=== PATIENT | female | born 1965 | race African-American/Black ===

== ENCOUNTER 2018-02-13 10:25 | Inpatient (IN) | payer MEDICAID ==
[~2018-02-13] VITALS: Ht 157.5 cm; Wt 59.0 kg
[~2018-02-13 10:25] MED LIST: ALBU18HF2 IH; BACL20TA PO; CETI10TA6 PO; DIAZ10TA4 PO; FERR-63 PO; FLUT16SP15 BOTHNSTRLS; FOLI-43 PO; GABA-531 PO; LISI-604 PO; MIRT45TA83 PO; ONDA4TAB5 PO; PHEN100C12 MT
[2018-02-13 11:07] LABS: BASOPHILS % 0.9 % (0.0-2.0); EOSINOPHILS % 0.8 % (0.0-5.0); HEMATOCRIT. 42.2 % (36.0-48.0); HEMOGLOBIN. 13.6 g/dL (12.0-16.0); LYMPHOCYTES % 52.5 % (20.0-50.0); MEAN CORPUSCULAR HEMOGLOBIN 29.3 pg (28.0-32.0); MEAN CORPUSCULAR VOLUME 90.6 fL (81.0-99.0); MEAN PLATELET VOLUME 6.9 fl (7.4-10.4); MONOCYTES % 3.1 % (2.0-8.0); NEUTROPHILS % 42.7 % (40.0-76.0); PLATELET 292 x1000/uL (130-400); RED BLOOD CELL COUNT 4.66 mill/uL (4.2-5.4); RED CELL DISTRIBUTION WIDTH 16.5 % (11.6-14.6)
[2018-02-13 11:14] LABS: CHLORIDE 106 mEq/L (98-107)
[2018-02-13] MEDS ORDERED: ONDANSETRON HCL 4MG/2ML INJ IV STA (11:20)
[2018-02-13] MEDS ORDERED: MORPHINE SULFATE 4 MG/ML CPJ (NOT FOR IM USE) IV STA (11:20)
[2018-02-13 11:23] LABS: AMMONIA 24 uMol/L (<32)
[2018-02-13 11:26] LABS: ETHANOL BLOOD 321 mg/dL
[2018-02-13] MEDS ORDERED: SODIUM CHLORIDE 0.9% 1,000 ML IV ONE (11:36)
[2018-02-13 11:55] LABS: BG BASE EXCESS -3.5 mmol/L (-2.0-2.0); BG CARBOXYHEMOGLOBIN 3.2 % (0.5-1.5); BG DEOXYHEMOGLOBIN 4.6 % (0.0-5.0); BG FRACTION INSPIRED OXYGEN 21; BG HCO3 ACT 21.9 mmol/L (22.0-26.0); BG METHEMOGLOBIN 0.4 % (0.0-1.5); BG OXYGEN SATURATION 95.2 % (92.0-98.5); BG OXYHEMOGLOBIN 91.8 % (94.0-97.0); BG PCO2 40.8 mmHg (35.0-45.0); BG PH 7.348 (7.350-7.450); BG PO2 88.8 mmHg (75.0-100.0); BG SAMPLE SITE LEFT RADIAL; BG TOTAL HEMOGLOBIN 13.8 g/dL (12.0-18.0); BG VENT MODE ROOM AIR
[2018-02-13 12:48] LABS: CLARITY URINE CLEAR (CLEAR); COLOR URINE YELLOW (YELLOW); KETONES URINE NEGATIVE (NEGATIVE); LEUKOCYTE ESTERASE URINE NEGATIVE (NEGATIVE); NITRITE URINE NEGATIVE (NEGATIVE); OCCULT BLOOD URINE 1+ (NEGATIVE); PROTEIN URINE NEGATIVE (NEGATIVE); SPECIFIC GRAVITY URINE 1.002 (1.005-1.030); UROBILINOGEN URINE 0.2 E.U./dL (0.2-1.0)
[2018-02-13] MEDS ORDERED: ACETAMINOPHEN 650MG/20.3ML UDC GT PRN (14:00)
[2018-02-13] MEDS ORDERED: ACETAMINOPHEN 650MG SUPP PR PRN (14:00)
[2018-02-13] MEDS ORDERED: ONDANSETRON HCL 4MG/2ML INJ IV PRN (14:00)
[2018-02-13] MEDS ORDERED: HYDROCODONE/ACETAMINOPHEN 10/325MG TABLET PO PRN (14:00)
[2018-02-13] MEDS ORDERED: MAGNESIUM/ALUMINUM HYDROXIDE/SIMETHICONE 30ML UDC PO PRN (14:00)
[2018-02-13] MEDS ORDERED: HYDROCODONE/ACETAMINOPHEN 5/325MG TABLET PO PRN (14:00)
[2018-02-13] MEDS ORDERED: CLONIDINE 0.1MG TABLET PO PRN (14:00)
[2018-02-13] MEDS ORDERED: ACETAMINOPHEN 325MG TABLET PO PRN (14:00)
[2018-02-13 14:04] LABS: *AMPHETAMINES SCREEN URINE NEGATIVE (NEGATIVE); *BARBITURATES SCREEN URINE NEGATIVE (NEGATIVE); *BENZODIAZEPINES SCREEN URINE NEGATIVE (NEGATIVE)
[2018-02-13 14:05] LABS: *COCAINE SCREEN URINE NEGATIVE (NEGATIVE); CANNABINOID URINE SCREEN PRESUMTIVE POSITIVE (NEGATIVE); METHADONE URINE SCREEN NEGATIVE (NEGATIVE); OPIATES URINE SCREEN NEGATIVE (NEGATIVE); PHENCYCLIDINE URINE SCREEN NEGATIVE (NEGATIVE)
[2018-02-13] MEDS ORDERED: LORAZEPAM 2MG/ML CPJ IV PRN (14:15)
[2018-02-13] MEDS ORDERED: ALBUTEROL (0.083%) 2.5MG/3ML NEB HHN PRN (14:15)
[2018-02-13 16:39] LABS: FOLIC ACID (FOLATE) SERUM 6.7 ng/mL (>5.38)
[2018-02-13] MEDS ORDERED: IOHEXOL-300 100 ML BOTTLE ONE (17:03)
[2018-02-13] MEDS: SODIUM CHLORIDE 0.45% 1,000 ML IV SCH ×2 (18:00→23:13)
[2018-02-13 18:41] LABS: T4 FREE 1.18 ng/dL (0.76-1.46)
[2018-02-13 20:11] LABS: AMMONIA 22 uMol/L (<32)
[2018-02-13 20:14] LABS: CREATINE KINASE 63 IU/L (26-192); CREATINE KINASE MB FRACTION < 1.0 ng/mL (0.5-3.6)
[2018-02-13 20:30] VITALS: BP 147/89
[2018-02-13 20:40] VITALS: BP 147/89
[2018-02-13] MEDS ORDERED: LEVETIRACETAM 500MG TABLET PO SCH (21:00)
[2018-02-13] MEDS ORDERED: PHENYTOIN SODIUM EXTENDED 100MG CAPSULE PO SCH (22:00)
[2018-02-13] MEDS ORDERED: LEVETIRACETAM 500 MG in SODIUM CHLORIDE 0.9% 100 ML IV SCH (22:30)
[2018-02-13] MEDS ORDERED: METOCLOPRAMIDE HCL 10MG/2ML VIAL IV PRN (22:30)
[2018-02-13] MEDS: MULTIVITAMINS,THER W-MINERALS TABLET PO SCH (23:12)
[2018-02-13] MEDS: GABAPENTIN 300MG CAPSULE PO SCH (23:12)
[2018-02-13] MEDS: MIRTAZAPINE 30MG TABLET PO SCH (23:12)
[2018-02-13] MEDS: FOLIC ACID 1MG TABLET PO SCH (23:12)
[2018-02-13] MEDS: THIAMINE HCL 100MG TABLET PO SCH (23:12)
[2018-02-13] MEDS: CETIRIZINE 10MG TABLET PO SCH (23:15)
[2018-02-13] MEDS: LEVETIRACETAM 500 MG in SODIUM CHLORIDE 0.9% 100 ML IV SCH (23:35)
[2018-02-14] VITALS (7 sets, daily range): BP systolic 101–130; BP diastolic 54–86
[2018-02-14 07:01] LABS: BASOPHILS % 0.5 % (0.0-2.0); EOSINOPHILS % 0.2 % (0.0-5.0); HEMATOCRIT. 37.5 % (36.0-48.0); HEMOGLOBIN. 11.9 g/dL (12.0-16.0); LYMPHOCYTES % 37.5 % (20.0-50.0); MEAN CORPUSCULAR VOLUME 91.1 fL (81.0-99.0); MEAN PLATELET VOLUME 6.8 fl (7.4-10.4); NEUTROPHILS % 55.8 % (40.0-76.0); PLATELET 249 x1000/uL (130-400); RED BLOOD CELL COUNT 4.11 mill/uL (4.2-5.4); RED CELL DISTRIBUTION WIDTH 16.3 % (11.6-14.6)
[2018-02-14 07:23] LABS: CHLORIDE 108 mEq/L (98-107)
[2018-02-14 07:42] LABS: AMYLASE 50 IU/L (25-115); CREATINE KINASE 58 IU/L (26-192); CREATINE KINASE MB FRACTION < 1.0 ng/mL (0.5-3.6); HDL CHOLESTEROL 74 mg/dL (40-59); LDL CHOLESTEROL 123 mg/dL (5-100); PHOSPHORUS 4.3 mg/dL (2.5-4.9); T4 FREE 0.91 ng/dL (0.76-1.46)
[2018-02-14] MEDS: GABAPENTIN 300MG CAPSULE PO SCH ×2 (09:49→17:48)
[2018-02-14] MEDS: FERROUS SULFATE 325MG TABLET PO SCH ×3 (09:49→17:48)
[2018-02-14] MEDS: THIAMINE HCL 100MG TABLET PO SCH (09:50)
[2018-02-14] MEDS: LEVETIRACETAM 500 MG in SODIUM CHLORIDE 0.9% 100 ML IV SCH ×2 (09:50→20:51)
[2018-02-14] MEDS: CETIRIZINE 10MG TABLET PO SCH (09:50)
[2018-02-14] MEDS: FOLIC ACID 1MG TABLET PO SCH (09:50)
[2018-02-14] MEDS: MULTIVITAMINS,THER W-MINERALS TABLET PO SCH (09:50)
[2018-02-14] MEDS: SODIUM CHLORIDE 0.45% 1,000 ML IV SCH (13:56)
[2018-02-14] MEDS: MIRTAZAPINE 30MG TABLET PO SCH (20:51)
[2018-02-15 04:00] VITALS: BP 120/84
[2018-02-15] MEDS: SODIUM CHLORIDE 0.45% 1,000 ML IV SCH (05:47)
[2018-02-15 06:48] LABS: BASOPHILS % 0.2 % (0.0-2.0); EOSINOPHILS % 0.5 % (0.0-5.0); HEMATOCRIT. 34.9 % (36.0-48.0); HEMOGLOBIN. 11.4 g/dL (12.0-16.0); LYMPHOCYTES % 48.8 % (20.0-50.0); MEAN CORPUSCULAR HEMOGLOBIN 29.7 pg (28.0-32.0); MEAN CORPUSCULAR VOLUME 91.1 fL (81.0-99.0); MONOCYTES % 7.3 % (2.0-8.0); NEUTROPHILS % 43.2 % (40.0-76.0); PLATELET 221 x1000/uL (130-400); RED BLOOD CELL COUNT 3.83 mill/uL (4.2-5.4); RED CELL DISTRIBUTION WIDTH 16.5 % (11.6-14.6)
[2018-02-15 07:18] LABS: CHLORIDE 110 mEq/L (98-107)
[2018-02-15 08:00] VITALS: BP 158/60
[2018-02-15] MEDS: MULTIVITAMINS,THER W-MINERALS TABLET PO SCH (08:09)
[2018-02-15] MEDS: GABAPENTIN 300MG CAPSULE PO SCH (08:09)
[2018-02-15] MEDS: CETIRIZINE 10MG TABLET PO SCH (08:09)
[2018-02-15] MEDS: FERROUS SULFATE 325MG TABLET PO SCH ×2 (08:09→12:23)
[2018-02-15] MEDS: FOLIC ACID 1MG TABLET PO SCH (08:09)
[2018-02-15] MEDS: THIAMINE HCL 100MG TABLET PO SCH (08:09)
[2018-02-15] MEDS: LEVETIRACETAM 500 MG in SODIUM CHLORIDE 0.9% 100 ML IV SCH (09:09)
[2018-02-15] MEDS ORDERED: THIA100T72 PO (11:02)
[2018-02-15] MEDS ORDERED: KEPP500 MT (11:02)
[2018-02-15 13:33] VITALS: BP 158/60
== END 2018-02-15 14:08 | disposition home or self-care (01) | DRG 282 ==
LOC: ER 10:25 → 7WST 13:13 → EDBEDREQ 13:16 → ENRESERV 19:43
PROVIDERS: ADMIT Internal Medicine; ATTEND Internal Medicine
PROC: 4A00X4Z Measurement of Central Nervous Electrical Activity, External Approach (ICD-10-PCS; principal; 2018-02-14)
DX: K85.90 Acute pancreatitis without necrosis or infection, unspecified (principal); R65.11 Systemic inflammatory response syndrome (SIRS) of non-infectious origin with acute organ dysfunction; G92 Toxic encephalopathy; E46 Unspecified protein-calorie malnutrition; R13.0 Aphagia; E87.2 Acidosis; G90.8 Other disorders of autonomic nervous system; E44.1 Mild protein-calorie malnutrition; R47.01 Aphasia; F10.129 Alcohol abuse with intoxication, unspecified; Y90.8 Blood alcohol level of 240 mg/100 ml or more; F17.200 Nicotine dependence, unspecified, uncomplicated; G40.909 Epilepsy, unspecified, not intractable, without status epilepticus; R26.9 Unspecified abnormalities of gait and mobility; I10 Essential (primary) hypertension; F12.90 Cannabis use, unspecified, uncomplicated; Z85.6 Personal history of leukemia; J44.9 Chronic obstructive pulmonary disease, unspecified; R47.02 Dysphasia; Z68.23 Body mass index [BMI] 23.0-23.9, adult; Z72.89 Other problems related to lifestyle; Z91.19 Patient's noncompliance with other medical treatment and regimen; Z79.51 Long term (current) use of inhaled steroids; Z79.899 Other long term (current) drug therapy
CPT/HCPCS: 36415; 36600; 70551; 74177; 80048; 80061; 80185; 80305; 82140; 82150; 82375; 82550; 82553; 82607; 82746; 82805; 83036; 83605; 83735; 84100; 84439; 84443; 84481; 84484; 92610; 93005; 93306; 93880; 93970; 96374; 96375; 97162; 97166; 99285; C1893; G0482; J1953; J2270; J2405; J2765; J7050; Q9967